=== PATIENT | male | born 1940 | race African-American/Black ===

== ENCOUNTER 2022-06-18 10:41 | Emergency (ER) | payer OTHER ==
[~2022-06-18] VITALS: Ht 185.4 cm; Wt 81.8 kg
[2022-06-18 11:30] LABS: Basophils # (auto) 0 10 ^3/uL (0-0.2); Eosinophils # (auto) 0.3 10 ^3/uL (0-0.8); Eosinophils % (auto) 5.3 % (0.0-7.0); Hemoglobin 8.4 g/dL (13.5-17.5); Lymphocytes # (auto) 2.1 10 ^3/uL (0.4-5.4); Mean Corpuscular Hemoglobin 33.9 pg (28.0-32.0)
[2022-06-18 11:32] LABS: Basophils % (auto) 0.7 % (0.0-2.0); Hematocrit 25.2 % (41.0-53.0); Lymphocytes % (auto) 33.7 % (10.0-50.0); Mean Corpuscular Hgb Conc. 33.3 g/dL (32.0-36.0); Monocytes # (auto) 0.7 10 ^3/uL (0-1.3); Monocytes % (auto) 10.6 % (0.0-12.0); Neutrophils # (auto) 3.1 10 ^3/uL (1.6-8.6); Neutrophils % (auto) 49.7 % (37.0-80.0); Nucleated Red Blood Cells % 0.2 %; Red Blood Cells 2.47 10^6/uL (4.5-5.90); White Blood Cell 6.1 10^3/uL (4.4-10.8)
[2022-06-18 11:35] LABS: Red Cell Distribution Width 23.3 % (11.8-14.3)
[2022-06-18 12:03] LABS: Potassium 3.4 mmol/L (3.5-5.1)
[2022-06-18 12:11] LABS: Albumin 2.8 g/dL (3.4-5.0); BUN/Creatinine Ratio 5.8; Bilirubin, Total 0.5 mg/dL (0.2-1.0); Calcium 10.8 mg/dL (8.5-10.1); Total Protein 6.9 g/dL (6.4-8.2)
[2022-06-18] MEDS ORDERED: fentaNYL CITRATE 100 MCG/2 ML VL IV ONE (12:15)
[2022-06-18] MEDS ORDERED: DexAMETHasone SOD PHOS 10MG/1ML VIAL INJ IV ONE (12:15)
[2022-06-18] MEDS ORDERED: HYDROcodone-ACET 5/325MG TAB PO ONE (13:15)
[2022-06-18 15:17] VITALS: BP 129/54
== END 2022-06-18 16:36 | disposition home or self-care (01) ==
LOC: ER 10:41
DX: M54.50 Low back pain, unspecified (principal); I12.0 Hypertensive chronic kidney disease with stage 5 chronic kidney disease or end stage renal disease; N18.6 End stage renal disease; E78.5 Hyperlipidemia, unspecified
CPT/HCPCS: 36415; 74176; 80053; 84484; 85025; 93005; 96374; 96375; 99285; J1100; J3010

== ENCOUNTER 2022-06-20 12:59 | Emergency (ER) | payer OTHER ==
[~2022-06-20] VITALS: Ht 185.4 cm; Wt 81.8 kg
[2022-06-20 13:39] VITALS: BP 93/49
[2022-06-20] MEDS ORDERED: HYDROcodone-ACET 5/325MG TAB PO ONE (14:00)
[2022-06-20] MEDS ORDERED: TRAM-297 PO (14:23)
== END 2022-06-20 14:42 | disposition home or self-care (01) ==
LOC: ER 12:59
DX: S39.012D Strain of muscle, fascia and tendon of lower back, subsequent encounter (principal); E78.5 Hyperlipidemia, unspecified; I12.0 Hypertensive chronic kidney disease with stage 5 chronic kidney disease or end stage renal disease; N18.6 End stage renal disease; X58.XXXD Exposure to other specified factors, subsequent encounter